=== PATIENT | male | born 1960 | race Asian ===

== ENCOUNTER 2019-04-18 13:05 | Day surgery (SDC) | payer OTHER ==
[2019-04-18] MEDS ORDERED: DEXAMETHASONE 4 MG/ML 1 ML INJ ×2 (16:23→16:24)
[2019-04-18] MEDS ORDERED: PROPOFOL 60 ML (16:23)
[2019-04-18] MEDS ORDERED: PHENYLephrine (100 MCG/ML) 10ML SYG (16:24)
[2019-04-18] MEDS ORDERED: METOCLOPRAMIDE 10 MG INJ (16:24)
[2019-04-18] MEDS ORDERED: ONDANSETRON 4 MG INJ (16:24)
[2019-04-18] MEDS ORDERED: ALBUTEROL 0.083% (NEB) 2.5 MG/3 ML AMP ×3 (16:35→16:38)
[2019-04-18] MEDS: ALBUTEROL 0.083% (NEB) 2.5 MG/3 ML AMP HHN ×2 (17:00→17:03)
== END 2019-04-18 18:15 | disposition home or self-care (01) ==
LOC: GIL 13:05
DX: Z12.11 Encounter for screening for malignant neoplasm of colon (principal); D12.5 Benign neoplasm of sigmoid colon; K64.8 Other hemorrhoids; K44.9 Diaphragmatic hernia without obstruction or gangrene; K21.0 Gastro-esophageal reflux disease with esophagitis; E11.9 Type 2 diabetes mellitus without complications; I10 Essential (primary) hypertension; E78.5 Hyperlipidemia, unspecified; Z79.84 Long term (current) use of oral hypoglycemic drugs
CPT/HCPCS: 43239; 82962; 88305; 88312; 88313; 94664